=== PATIENT | male | born 1995 | race Hispanic/Latino ===

== ENCOUNTER 2017-11-28 03:32 | Observation (INO) | payer BC ==
[2017-11-28 03:48] VITALS: BMI 21.7
[2017-11-28] MEDS ORDERED: Piperacillin/Tazobact 3.375 GM in Sodium Chloride 0.9% 100 ML IVPB STA (03:49)
[2017-11-28] MEDS ORDERED: Sodium Chloride 0.9% 1,000 ML IV STA (03:50)
[2017-11-28] MEDS ORDERED: Piperacillin/Tazobact 3.375 gm Inj IVPB ONE (03:55)
--- NOTE | 2017-11-28 04:17 | ED PDOC ---
HPI: Abdomen Time Seen by Provider: 11/28/17 03:39 Chief Complaint (Nursing): Abdominal Pain Chief Complaint (Provider): Abdominal Pain, Nausea History Per: Patient History/Exam Limitations: no limitations Onset/Duration Of Symptoms: Sudden Onset (0230) Current Symptoms Are (Timing): Still Present Additional Complaint(s): 22 y/o male with no significant pmhx, who presents to the ED for evaluation of abdominal pain and nausea x1 hour. Patient states he work up around 02:30am with periumbilical pain and nausea. He reports he tried to have a bowel movement , but was unable to. He states the pain and nausea worsened, prompting him to present to the ED. On arrival to ED, patient states he feels better. Denies fever, chills, or any history of abdominal surgeries. PMD: None provided Past Medical History Reviewed: Historical Data, Nursing Documentation, Vital Signs Vital Signs: Last Vital Signs Temp 97.6 F 11/28/17 03:42 Pulse 115 H 11/28/17 03:42 Resp 18 11/28/17 03:42 BP 134/81 11/28/17 03:42 Pulse Ox 95 11/28/17 06:29 - Medical History PMH: No Chronic Diseases - Surgical History Surgical History: No Surg Hx - Family History Family History: States: Unknown Family Hx - Home Medications Home Medications: Ambulatory Orders Medication Instructions Recorded No Known Home Med 11/28/17 - Allergies Allergies/Adverse Reactions: Allergies Allergy/AdvReac Type Severity Reaction Status Date / Time No Known Allergies Allergy Verified 11/28/17 03:47 Review of Systems ROS Statement: Except As Marked, All Systems Reviewed And Found Negative Constitutional: Negative for: Fever, Chills Gastrointestinal: Positive for: Nausea, Abdominal Pain Physical Exam - Reviewed Nursing Documentation Reviewed: Yes Vital Signs Reviewed: Yes - Physical Exam Appears: Positive for: Well, Non-toxic, No Acute Distress Head Exam: Positive for: ATRAUMATIC, NORMAL INSPECTION, NORMOCEPHALIC Skin: Positive for: Normal Color, Warm, Dry. Negative for: Rash Eye Exam: Positive for: EOMI, Normal appearance, PERRL Neck: Positive for: Normal, Painless ROM, Supple Cardiovascular/Chest: Positive for: Regular Rate, Rhythm. Negative for: Murmur Respiratory: Positive for: Normal Breath Sounds. Negative for: Respiratory Distress Gastrointestinal/Abdominal: Positive for: Tenderness (RLQ). Negative for: Organomegaly, Mass, Guarding, Rebound Back: Positive for: Normal Inspection. Negative for: L CVA Tenderness, R CVA Tenderness, Vertebral Tenderness Extremity: Positive for: Normal ROM. Negative for: Pedal Edema, Deformity Neurologic/Psych: Positive for: Alert, Oriented - Laboratory Results Result Diagrams: 11/28/17 04:31 11/28/17 04:31 - ECG O2 Sat by Pulse Oximetry: 95 (RA) Pulse Ox Interpretation: Normal Medical Decision Making Medical Decision Makin:45AM A/P: 22 y/o male with no pmhx presenting with RLQ pain -Patient well appearing with normal vital signs except tachycardia -Differential diagnoses include, but are not limited to appendicitis vs mesenteric adenitis vs colitis vs gas -Will initiate workup for appendicitis 06:15AM CT ABDOMEN AND PELVIS WITH IV CONTRAST FINDINGS: LUNG BASES: No significant abnormality seen. ABDOMEN: LIVER: No acute abnormality of the liver identified. GALLBLADDER AND BILE DUCTS: No CT evidence of acute cholecystitis. No evidence of significant biliary ductal dilatation. PANCREAS: No CT evidence of acute pancreatitis. SPLEEN: No acute abnormality of the spleen identified. ADRENALS: No acute abnormality of the adrenal glands identified. KIDNEYS AND URETERS: No acute abnormality of the kidneys identified. No evidence of significant hydrouereteronephrosis. STOMACH AND BOWEL: Findings compatible with a distal small bowel obstruction. There are multiple dilated mostly distal small bowel loops seen in the pelvis, and the terminal ileum is decompressed. Transition point is seen, within the distal ileum, images 36-42 of series 601, where there is a change in caliber of the bowel, followed by a decompressed and mildly thick walled terminal ileum. Findings most likely represent a small bowel obstruction secondary to adhesions, less likely to mild enteritis involving the terminal ileum. Retained stool noted throughout the colon, with no evidence of a significant large bowel obstruction or fecal impaction. Otherwise , no significant abnormality of the bowel is identified. No evidence of diffuse small bowel dilatation. PELVIS: APPENDIX: Appendix is seen, and is within normal limits in appearance. BLADDER: No acute abnormality of the bladder identified. REPRODUCTIVE: No acute abnormality of the reproductive organs is seen. ABDOMEN and PELVIS: INTRAPERITONEAL SPACE: Small amount of free fluid in the pelvis and right abdomen. No evidence of free air. BONES/JOINTS: No acute fractures or other acute bony abnormality noted. SOFT TISSUES: No acute abnormality of the visualized soft tissues is seen. VASCULATURE: No evidence of abdominal aortic aneurysm. No evidence of periaortic hemorrhage. LYMPH NODES: No evidence of diffuse lymphadenopathy. IMPRESSION: - Findings highly suspicious for a distal small bowel obstruction. Please see above for a full description. - Small amount of free fluid. - See above for remaining findings. 630AM: Unclear as to why patient has SBO, possibly underlying Meckel's? Surgery consulted, Dr. Hermosillo aware. NGT if patient begins to vomit. Scribe Attestation: Documented by Torito Bales, acting as a scribe for Dax Pierre MD. Provider Scribe Attestation: All medical record entries made by the Scribe were at my direction and personally dictated by me. I have reviewed the chart and agree that the record accurately reflects my personal performance of the history, physical exam, medical decision making, and the department course for this patient. I have also personally directed, reviewed, and agree with the discharge instructions and disposition. Disposition - Clinical Impression Clinical Impression: Small bowel obstruction - Disposition Disposition Time: 06:31 Condition: STABLE Forms: [facility] ([place])
[2017-11-28 04:42] LABS: URINE BILIRUBIN NEGATIVE (NEGATIVE); URINE BLOOD NEGATIVE (NEGATIVE); URINE CLARITY CLEAR (Clear); URINE COLOR YELLOW (YELLOW); URINE GLUCOSE (UA) NEG (Normal); URINE LEUKOCYTE ESTERASE NEG Leu/uL (Negative); URINE PROTEIN NEGATIVE (NEGATIVE); URINE UROBILINOGEN 0.2-1.0 mg/dL (0.2-1.0)
[2017-11-28 04:43] LABS: BASO # 0.1 K/uL (0.0-0.2); BASO % 1.1 % (0.0-2.0); EOS # 0.2 K/uL (0.0-0.7); EOS % 5.2 % (0.0-4.0); HEMOGLOBIN 14.4 g/dL (12.0-18.0); LYMPH # 2.4 K/uL (1.0-4.3); LYMPH % 51.2 % (20.0-40.0); MEAN CORPUSCULAR HGB CONC 33.7 g/dL (33.0-37.0); MEAN PLATELET VOLUME 8.9 fl (7.2-11.7); MONO # 0.3 K/uL (0.0-0.8); MONO % 7.2 % (0.0-10.0); NEUT # 1.7 K/uL (1.8-7.0); NEUT % 35.3 % (50.0-75.0); NRBC % 0.3 % (0.0-0.0); RBC 4.79 Mil/uL (4.40-5.90); RED CELL DISTRIBUTION WIDTH 12.8 % (11.5-14.5); WHITE BLOOD COUNT 4.8 K/uL (4.8-10.8)
[2017-11-28 04:49] LABS: ALB/GLOB RATIO 1.6 (1.0-2.1); ALBUMIN 4.3 g/dL (3.5-5.0); ALT/SGPT 43 U/L (21-72); AST/SGOT 34 U/L (17-59); BILIRUBIN,DIRECT 0.2 mg/ml (0.0-0.4); BLOOD UREA NITROGEN 18 mg/dl (9-20); CALCIUM 9.1 mg/dL (8.4-10.2); GFR AFRICAN-AMERICAN > 60; GFR NON-AFRICAN AMERICAN > 60
[2017-11-28 04:53] LABS: PARTIAL THROMBOPLASTIN TIME 31.2 Seconds (25.6-37.1); PROTHROMBIN TIME 11.5 Seconds (9.8-13.1)
[2017-11-28] MEDS ORDERED: Sodium Chloride 0.9% 50 ML IV ONE (04:55)
[2017-11-28] MEDS ORDERED: Iohexol 300 100 ML IJ ONE (04:55)
[2017-11-28] MEDS ORDERED: Morphine 4 MG/ML VIAL ONE (05:18)
--- NOTE | 2017-11-28 06:17 | CT ---
EXAM: CT Abdomen and Pelvis With Intravenous Contrast EXAM DATE/TIME: 11/28/2017 3:48 AM CLINICAL HISTORY: 22 years old, male; Pain; Abdominal pain; Localized; Right lower quadrant (rlq); Additional info: Rlq pain, R/O appendicitis TECHNIQUE: Axial computed tomography images of the abdomen and pelvis with intravenous contrast. All CT scans at this facility use one or more dose reduction techniques, viz.: automated exposure control; ma/kV adjustment per patient size (including targeted exams where dose is matched to indication; i.e. head); or iterative reconstruction technique. Coronal and sagittal reformatted images were created and reviewed. CONTRAST: 90 mL of [id number] administered intravenously. COMPARISON: No relevant prior studies available. FINDINGS: LUNG BASES: No significant abnormality seen. ABDOMEN: LIVER: No acute abnormality of the liver identified. GALLBLADDER AND BILE DUCTS: No CT evidence of acute cholecystitis. No evidence of significant biliary ductal dilatation. PANCREAS: No CT evidence of acute pancreatitis. SPLEEN: No acute abnormality of the spleen identified. ADRENALS: No acute abnormality of the adrenal glands identified. KIDNEYS AND URETERS: No acute abnormality of the kidneys identified. No evidence of significant hydrouereteronephrosis. STOMACH AND BOWEL: Findings compatible with a distal small bowel obstruction. There are multiple dilated mostly distal small bowel loops seen in the pelvis, and the terminal ileum is decompressed. Transition point is seen, within the distal ileum, images 36-42 of series 601, where there is a change in caliber of the bowel, followed by a decompressed and mildly thick walled terminal ileum. Findings most likely represent a small bowel obstruction secondary to adhesions, less likely to mild enteritis involving the terminal ileum. Retained stool noted throughout the colon, with no evidence of a significant large bowel obstruction or fecal impaction. Otherwise, no significant abnormality of the bowel is identified. No evidence of diffuse small bowel dilatation.. PELVIS: APPENDIX: Appendix is seen, and is within normal limits in appearance. BLADDER: No acute abnormality of the bladder identified. REPRODUCTIVE: No acute abnormality of the reproductive organs is seen. ABDOMEN and PELVIS: INTRAPERITONEAL SPACE: Small amount of free fluid in the pelvis and right abdomen. No evidence of free air. BONES/JOINTS: No acute fractures or other acute bony abnormality noted. SOFT TISSUES: No acute abnormality of the visualized soft tissues is seen. VASCULATURE: No evidence of abdominal aortic aneurysm. No evidence of periaortic hemorrhage. LYMPH NODES: No evidence of diffuse lymphadenopathy. IMPRESSION: - Findings highly suspicious for a distal small bowel obstruction. Please see above for a full description. - Small amount of free fluid. - See above for remaining findings.
[2017-11-28] MEDS ORDERED: HYDROmorphone 0.5 mg/0.5 ml ISec IVP STA (06:35)
[2017-11-28] MEDS ORDERED: HYDROmorphone 0.5 mg/0.5 ml ISec ONE ×2 (06:36→08:57)
[2017-11-28] MEDS ORDERED: HYDROmorphone 0.5 mg/0.5 ml ISec IVP SCH (08:00)
[2017-11-28] MEDS ORDERED: Iohexol 240 (50 ml) PO ONE (09:51)
--- NOTE | 2017-11-28 09:56 | CP.PCM.CON ---
<Anders Feliciano - Last Filed: 11/28/17 09:53> History of Present Illness - History of Present Illness History of Present Illness: General Surgery Consult: Dr. Motley 22M with no significant past medical history presents to [facility] ED with complaints of abdominal pain. Patient reports pain started around 3AM. States pain was along epigastrium at first and later felt the abdominal pain along RLQ. Patient states he tried having a BM but was unable to do so. Reports nausea denies vomiting. States last BM was yesterday afternoon. Patient has not pass flatus since yesterday. At time of examination patient reported still having some RLQ pain. Denies hematochezia. Review of Vitals is normal. PMH: none PSH: none Allergies: NKDA Fam Hx: non-contributory Review of Systems - Review of Systems Review of Systems: 12 pt ROS unremarkable except as stated in HPI Past Patient History - Past Social History Smoking Status: Never Smoked - CARDIAC Hx Cardiac Disorders: No - PSYCHIATRIC Hx Substance Use: No Meds Allergies/Adverse Reactions: Allergies Allergy/AdvReac Type Severity Reaction Status Date / Time No Known Allergies Allergy Verified 11/28/17 03:47 - Medications Medications: Current Medications Hydromorphone HCl (Dilaudid) 0.5 mg IVP Q2 MERA Last Admin: 11/28/17 08:59 Dose: 0.5 mg Physical Exam - Constitutional Appears: Non-toxic, No Acute Distress - Head Exam Head Exam: NORMOCEPHALIC - Eye Exam Eye Exam: EOMI, Normal appearance - ENT Exam ENT Exam: Mucous Membranes Moist - Respiratory Exam Respiratory Exam: NORMAL BREATHING PATTERN - Cardiovascular Exam Cardiovascular Exam: +S1, +S2 - GI/Abdominal Exam GI & Abdominal Exam: Soft, Tenderness. absent: Distended, Firm, Guarding, Hernia Additional comments: RLQ tenderness to deep palpation - Neurological Exam Neurological exam: Alert - Psychiatric Exam Psychiatric exam: Normal Mood - Skin Skin Exam: Dry, Intact, Warm Results - Vital Signs Recent Vital Signs: Last Vital Signs Temp 97.8 F 11/28/17 09:09 Pulse 61 11/28/17 09:09 Resp 18 11/28/17 09:09 BP 118/70 11/28/17 09:09 Pulse Ox 100 11/28/17 09:09 - Labs Result Diagrams: 11/28/17 04:31 11/28/17 04:31 Labs: Laboratory Results - last 24 hr 11/28/17 11/28/17 11/28/17 04:31 04:31 04:31 WBC 4.8 RBC 4.79 Hgb 14.4 Hct 42.6 MCV 89.0 MCH 30.0 MCHC 33.7 RDW 12.8 Plt Count 184 MPV 8.9 Neut % (Auto) 35.3 L Lymph % (Auto) 51.2 H Laurel % (Auto) 7.2 Eos % (Auto) 5.2 H Baso % (Auto) 1.1 Neut # (Auto) 1.7 L Lymph # (Auto) 2.4 Laurel # (Auto) 0.3 Eos # (Auto) 0.2 Baso # (Auto) 0.1 PT INR APTT Sodium 140 Potassium 4.0 Chloride 103 Carbon Dioxide 28 Anion Gap 13 BUN 18 Creatinine 0.9 Est GFR ( Amer) > 60 Est GFR (Non-Af Amer) > 60 Random Glucose 90 Lactic Acid 1.0 Calcium 9.1 Total Bilirubin 0.2 Direct Bilirubin 0.2 AST 34 ALT 43 Alkaline Phosphatase 64 Total Protein 6.9 Albumin 4.3 Globulin 2.6 Albumin/Globulin Ratio 1.6 Urine Color Urine Clarity Urine pH Ur Specific Victoria Urine Protein Urine Glucose (UA) Urine Ketones Urine Blood Urine Nitrate Urine Bilirubin Urine Urobilinogen Ur Leukocyte Esterase Urine RBC (Auto) Urine Microscopic WBC Blood Type Blood Type Confirm Antibody Screen BBK History Checked 11/28/17 11/28/17 11/28/17 04:31 04:31 04:31 WBC RBC Hgb Hct MCV MCH MCHC RDW Plt Count MPV Neut % (Auto) Lymph % (Auto) Laurel % (Auto) Eos % (Auto) Baso % (Auto) Neut # (Auto) Lymph # (Auto) Laurel # (Auto) Eos # (Auto) Baso # (Auto) PT 11.5 INR 1.0 APTT 31.2 Sodium Potassium Chloride Carbon Dioxide Anion Gap BUN Creatinine Est GFR ( Amer) Est GFR (Non-Af Amer) Random Glucose Lactic Acid Calcium Total Bilirubin Direct Bilirubin AST ALT Alkaline Phosphatase Total Protein Albumin Globulin Albumin/Globulin Ratio Urine Color Yellow Urine Clarity Clear Urine pH 6.0 Ur Specific Victoria 1.020 Urine Protein Negative Urine Glucose (UA) Neg Urine Ketones Negative Urine Blood Negative Urine Nitrate Negative Urine Bilirubin Negative Urine Urobilinogen 0.2-1.0 Ur Leukocyte Esterase Neg Urine RBC (Auto) 3 Urine Microscopic WBC 1 Blood Type O NEGATIVE Blood Type Confirm Antibody Screen Negative BBK History Checked No verified bt 11/28/17 06:42 WBC RBC Hgb Hct MCV MCH MCHC RDW Plt Count MPV Neut % (Auto) Lymph % (Auto) Laurel % (Auto) Eos % (Auto) Baso % (Auto) Neut # (Auto) Lymph # (Auto) Laurel # (Auto) Eos # (Auto) Baso # (Auto) PT INR APTT Sodium Potassium Chloride Carbon Dioxide Anion Gap BUN Creatinine Est GFR ( Amer) Est GFR (Non-Af Amer) Random Glucose Lactic Acid Calcium Total Bilirubin Direct Bilirubin AST ALT Alkaline Phosphatase Total Protein Albumin Globulin Albumin/Globulin Ratio Urine Color Urine Clarity Urine pH Ur Specific Victoria Urine Protein Urine Glucose (UA) Urine Ketones Urine Blood Urine Nitrate Urine Bilirubin Urine Urobilinogen Ur Leukocyte Esterase Urine RBC (Auto) Urine Microscopic WBC Blood Type Blood Type Confirm O NEGATIVE Antibody Screen BBK History Checked Assessment & Plan - Assessment and Plan (Free Text) Assessment: 22M with abdominal pain and RLQ tenderness Plan: -NPO -IVF -No indication for ABx therapy at this present time -Will repeat CT scan with PO contrast will f/u -Serial Abd Exams -Further recs per Dr. Tiesha CALDERA PGY2 <Tang Motley - Last Filed: 11/28/17 10:46> History of Present Illness - History of Present Illness History of Present Illness: Patient was seen and examined at the bedside with resident's. Agree with resident's note above. Meds - Medications Medications: Current Medications Hydromorphone HCl (Dilaudid) 1 mg IVP Q4 PRN PRN Reason: Pain, moderate (4-7) Metronidazole (Flagyl 500mg/100ml Ns) 100 mls @ 100 mls/hr IVPB Q8 MERA PRN Reason: Protocol Pantoprazole Sodium (Protonix Inj) 40 mg IVP DAILY [facility] Physical Exam - GI/Abdominal Exam Additional comments: soft, tender in the lower abdomen, ND, BS+, no rebound, no guarding - Rectal Exam Rectal Exam: Deferred Results - Vital Signs Recent Vital Signs: Last Vital Signs Temp 97.8 F 11/28/17 09:09 Pulse 61 11/28/17 09:09 Resp 18 11/28/17 09:09 BP 118/70 11/28/17 09:09 Pulse Ox 100 11/28/17 09:09 - Labs Result Diagrams: 11/28/17 04:31 11/28/17 04:31 Labs: Laboratory Results - last 24 hr 11/28/17 11/28/17 11/28/17 04:31 04:31 04:31 WBC 4.8 RBC 4.79 Hgb 14.4 Hct 42.6 MCV 89.0 MCH 30.0 MCHC 33.7 RDW 12.8 Plt Count 184 MPV 8.9 Neut % (Auto) 35.3 L Lymph % (Auto) 51.2 H [place] % (Auto) 7.2 Eos % (Auto) 5.2 H Baso % (Auto) 1.1 Neut # (Auto) 1.7 L Lymph # (Auto) 2.4 Laurel # (Auto) 0.3 Eos # (Auto) 0.2 Baso # (Auto) 0.1 PT INR APTT Sodium 140 Potassium 4.0 Chloride 103 Carbon Dioxide 28 Anion Gap 13 BUN 18 Creatinine 0.9 Est GFR ( Amer) > 60 Est GFR (Non-Af Amer) > 60 Random Glucose 90 Lactic Acid 1.0 Calcium 9.1 Total Bilirubin 0.2 Direct Bilirubin 0.2 AST 34 ALT 43 Alkaline Phosphatase 64 Total Protein 6.9 Albumin 4.3 Globulin 2.6 Albumin/Globulin Ratio 1.6 Urine Color Urine Clarity Urine pH Ur Specific Victoria Urine Protein Urine Glucose (UA) Urine Ketones Urine Blood Urine Nitrate Urine Bilirubin Urine Urobilinogen Ur Leukocyte Esterase Urine RBC (Auto) Urine Microscopic WBC Blood Type Blood Type Confirm Antibody Screen BBK History Checked 11/28/17 11/28/17 11/28/17 04:31 04:31 04:31 WBC RBC Hgb Hct MCV MCH MCHC RDW Plt Count MPV Neut % (Auto) Lymph % (Auto) Laurel % (Auto) Eos % (Auto) Baso % (Auto) Neut # (Auto) Lymph # (Auto) [place] # (Auto) Eos # (Auto) Baso # (Auto) PT 11.5 INR 1.0 APTT 31.2 Sodium Potassium Chloride Carbon Dioxide Anion Gap BUN Creatinine Est GFR ( Amer) Est GFR (Non-Af Amer) Random Glucose Lactic Acid Calcium Total Bilirubin Direct Bilirubin AST ALT Alkaline Phosphatase Total Protein Albumin Globulin Albumin/Globulin Ratio Urine Color Yellow Urine Clarity Clear Urine pH 6.0 Ur Specific [place] 1.020 Urine Protein Negative Urine Glucose (UA) Neg Urine Ketones Negative Urine Blood Negative Urine Nitrate Negative Urine Bilirubin Negative Urine Urobilinogen 0.2-1.0 Ur Leukocyte Esterase Neg Urine RBC (Auto) 3 Urine Microscopic WBC 1 Blood Type O NEGATIVE Blood Type Confirm Antibody Screen Negative BBK History Checked No verified bt 11/28/17 06:42 WBC RBC Hgb Hct MCV MCH MCHC RDW Plt Count MPV Neut % (Auto) Lymph % (Auto) Laurel % (Auto) Eos % (Auto) Baso % (Auto) Neut # (Auto) Lymph # (Auto) Laurel # (Auto) Eos # (Auto) Baso # (Auto) PT INR APTT Sodium Potassium Chloride Carbon Dioxide Anion Gap BUN Creatinine Est GFR ( Amer) Est GFR (Non-Af Amer) Random Glucose Lactic Acid Calcium Total Bilirubin Direct Bilirubin AST ALT Alkaline Phosphatase Total Protein Albumin Globulin Albumin/Globulin Ratio Urine Color Urine Clarity Urine pH Ur Specific Victoria Urine Protein Urine Glucose (UA) Urine Ketones Urine Blood Urine Nitrate Urine Bilirubin Urine Urobilinogen Ur Leukocyte Esterase Urine RBC (Auto) Urine Microscopic WBC Blood Type Blood Type Confirm O NEGATIVE Antibody Screen BBK History Checked - Imaging and Cardiology CT scan - abdomen Status: Image reviewed by me, Report reviewed by me Assessment & Plan - Assessment and Plan (Free Text) Plan: - Repeat labs in am - Will follow
[2017-11-28] MEDS ORDERED: HYDROmorphone 1 mg/ml ISec IVP PRN (10:01)
--- NOTE | 2017-11-28 11:07 | HP ---
HISTORY OF PRESENT ILLNESS: Mr. Anton is a 22-year-old male who was admitted via the emergency room because of severe abdominal pain that started at about 3:00 in the morning. He had the pain in the epigastric area and also in the right lower quadrant area. He came to the emergency room where he had a scan of the abdomen that was compatible with small bowel obstruction. He was therefore admitted for workup and therapy. He denied diarrhea, nausea or vomiting. PAST MEDICAL HISTORY: Unremarkable. FAMILY HISTORY: Noncontributory. SOCIAL HISTORY: He does not drink or smoke. REVIEW OF SYSTEMS: Essentially unremarkable. PHYSICAL EXAMINATION: GENERAL: The patient is alert, oriented, appears to be in moderate distress because of abdominal pain. VITAL SIGNS: Blood pressure 118/70 with the pulse of 61, respiratory rate is 18. He is afebrile. O2 sat is 100% on room air. SKIN: Shows fair turgor. HEENT: Pupils are equal and reactive to light and accommodation. Mouth shows fair hygiene. LUNGS: Clear. HEART: Regular. No murmurs or gallops. ABDOMEN: Soft with right quadrant and suprapubic tenderness. No organomegaly appreciated. There is normoactive bowel sounds. EXTREMITIES: Show no edema or cyanosis. CENTRAL NERVOUS SYSTEM: Exam grossly intact. LABORATORY DATA: WBC 4.8, hemoglobin 14.4, and platelet count 184,000. Sodium 140, potassium 4, BUN 18, and creatinine 0.9. PT 11.5 and INR 1. Urinalysis essentially unremarkable. CT scan of abdomen and pelvis with IV contrast, findings are highly suspicious of distal small bowel obstruction and small amount of free fluid. IMPRESSION: Small bowel obstruction with acute abdominal pain. PLAN: The plan is surgical evaluation. The patient may need a CT scan of abdomen and pelvis with contrast. Further therapy will depend on findings and analgesics will be given for pain. Jose Hermosillo MD
[2017-11-28] MEDS: metroNIDAZOLE 500mg/100ml NS 100 ML IVPB SCH ×2 (11:08→16:58)
--- NOTE | 2017-11-28 12:00 | RAD ---
PROCEDURE: CHEST RADIOGRAPH, 1 VIEW HISTORY: ABDOMINAL PAIN COMPARISON: None available. FINDINGS: LUNGS: No acute pulmonary disease appreciated bilaterally. PLEURA: No pneumothorax or pleural fluid seen. CARDIOVASCULAR: Normal. OSSEOUS STRUCTURES: No significant abnormalities. VISUALIZED UPPER ABDOMEN: Normal. OTHER FINDINGS: None. IMPRESSION: No acute cardiopulmonary disease appreciated.
--- NOTE | 2017-11-28 16:36 | CT ---
PROCEDURE: CT Abdomen and Pelvis with contrast HISTORY: RLQ tenderness COMPARISON: None. TECHNIQUE: Helical CT of the abdomen and pelvis was performed following oral contrast administration. Intravenous contrast was not administered as per referring physician request. Contrast dose: None Radiation dose: Total exam DLP = 273.40 mGy-cm. This CT exam was performed using one or more of the following dose reduction techniques: Automated exposure control, adjustment of the mA and/or kV according to patient size, and/or use of iterative reconstruction technique. FINDINGS: Lack of intravenous contrast limits evaluation of solid abdominal and pelvic viscera in particular. LOWER THORAX: Lung bases remain clear. LIVER: Unremarkable. No gross lesion or ductal dilatation. GALLBLADDER AND BILE DUCTS: Vicarious excretion of iodinated contrast material is mildly identified within the lumen of the gallbladder. PANCREAS: Unremarkable. No gross lesion or ductal dilatation. SPLEEN: Unremarkable. ADRENALS: Unremarkable. No mass. KIDNEYS AND URETERS: Unremarkable. No hydronephrosis. No solid mass. VASCULATURE: Unremarkable. No aortic aneurysm. BOWEL: Stomach is mildly distended with retained oral contrast material and air. Proximal and mid small bowel loops appeared normal in caliber with distended distal large bowel loops with fecalized luminal contents with exception of the distal ileum which appears collapsed including the terminal ileum in the initial series performed at around 1 p.m. today. Delayed imaging performed at around 4 o'clock p.m. however reveals fecalization of the distal small bowel either completely or near completely resolved and the overall number of distal small-bowel loops dilated diminishing overall. Further, oral contrast is identified within the cecum and possibly the proximal ascending colon though minimal at this time. The pattern is therefore felt to represent a resolving ileus or partial/intermittent distal small bowel obstruction. APPENDIX: Appendix is likely normal once again. Clinically correlate further. No definite CT pattern appendicitis. Lack of intraperitoneal fat limits evaluation of the abdominal viscera. PERITONEUM: Unremarkable. No free fluid. No free air. LYMPH NODES: No prominent lymphadenopathy identified. BLADDER: Distended with excreted iodinated contrast material from prior CT 11/28/2017. REPRODUCTIVE: Unremarkable. BONES: No acute fracture. OTHER FINDINGS: None. IMPRESSION: 1. Diminishing distention of distal small bowel loops is appreciated as well as fecalization with prominent fecal material again seen throughout the colon in a pattern that suggests resolving ileus or partial/intermittent distal small bowel obstruction and possible constipation throughout the colon. Further clinical correlation is advised. No extravasation of oral contrast and contrast material or free intraperitoneal gas. No definitive ascites. 2. Appendicitis is not favored with the appendix partially captured medial to the cecum partially filled with gas. The appendix is likely normal.
[2017-11-28 23:32] VITALS: RESP 18
[2017-11-29] MEDS: metroNIDAZOLE 500mg/100ml NS 100 ML IVPB SCH ×2 (00:40→10:14)
[2017-11-29] MEDS: Sodium Chloride 0.9% 1,000 ML IV SCH ×2 (03:30→04:26)
[2017-11-29 06:41] LABS: ALB/GLOB RATIO 1.6 (1.0-2.1); ALBUMIN 3.5 g/dL (3.5-5.0); ALT/SGPT 36 U/L (21-72); AST/SGOT 25 U/L (17-59); BLOOD UREA NITROGEN 13 mg/dl (9-20); GFR AFRICAN-AMERICAN > 60; GFR NON-AFRICAN AMERICAN > 60
[2017-11-29 06:48] LABS: BASO % 0.8 % (0.0-2.0); EOS # 0.2 K/uL (0.0-0.7); EOS % 4.1 % (0.0-4.0); HEMOGLOBIN 13.6 g/dL (12.0-18.0); LYMPH # 1.4 K/uL (1.0-4.3); LYMPH % 36.4 % (20.0-40.0); MEAN CELL VOLUME 88.5 fl (80.0-94.0); MEAN CORPUSCULAR HEMOGLOBIN 30.6 pg (27.0-31.0); MEAN CORPUSCULAR HGB CONC 34.6 g/dL (33.0-37.0); MEAN PLATELET VOLUME 9.2 fl (7.2-11.7); MONO # 0.3 K/uL (0.0-0.8); MONO % 8.4 % (0.0-10.0); NEUT # 1.9 K/uL (1.8-7.0); NEUT % 50.3 % (50.0-75.0); NRBC % 0.4 % (0.0-0.0); RBC 4.44 Mil/uL (4.40-5.90); RED CELL DISTRIBUTION WIDTH 12.8 % (11.5-14.5); WHITE BLOOD COUNT 3.8 K/uL (4.8-10.8)
--- NOTE | 2017-11-29 08:00 | CP.PCM.PN ---
Subjective - Date & Time of Evaluation Date of Evaluation: 11/29/17 Time of Evaluation: 07:58 - Subjective Subjective: General Surgery Progress Note for Dr. Motley 22M seen at bedside this AM. States that pain is greatly improved. Denies any acute overnight events or new complaints. States that he has been able to pass some gas but still has not had a BM since admittance to the hospital. Appetite is good. Denies any recent N/V/F/C/CP/SOB/D Objective - Vital Signs/Intake and Output Vital Signs (last 24 hours): Temp Pulse Resp BP Pulse Ox 98.2 F 57 L 18 100/55 L 97 11/28/17 23:32 11/28/17 23:32 11/28/17 23:32 11/28/17 23:32 11/28/17 23:32 - Medications Medications: Current Medications Hydromorphone HCl (Dilaudid) 1 mg IVP Q4 PRN PRN Reason: Pain, moderate (4-7) Last Admin: 11/28/17 11:07 Dose: 1 mg Metronidazole (Flagyl 500mg/100ml Ns) 100 mls @ 100 mls/hr IVPB Q8 [facility] PRN Reason: Protocol Last Admin: 11/29/17 00:40 Dose: 100 mls/hr Sodium Chloride (Sodium Chloride 0.9%) 1,000 mls @ 100 mls/hr IV .Q10H [facility] Stop: 11/30/17 03:26 Last Admin: 11/29/17 04:26 Dose: 100 mls/hr Pantoprazole Sodium (Protonix Inj) 40 mg IVP DAILY [facility] Last Admin: 11/28/17 11:00 Dose: 40 mg - Labs Labs: 11/29/17 05:40 11/29/17 05:40 PT 11.5 Seconds (9.8-13.1) 11/28/17 04:31 INR 1.0 (0.9-1.2) 11/28/17 04:31 APTT 31.2 Seconds (25.6-37.1) 11/28/17 04:31 - Constitutional Appears: Well, Non-toxic, No Acute Distress - Head Exam Head Exam: ATRAUMATIC, NORMOCEPHALIC - GI/Abdominal Exam GI & Abdominal Exam: Soft, Tenderness. absent: Firm, Guarding, Rigid, Rebound Additional comments: Tenderness to RLQ - Neurological Exam Neurological Exam: Alert, Awake, Oriented x3 - Psychiatric Exam Psychiatric exam: Normal Affect, Normal Mood Assessment and Plan - Assessment and Plan (Free Text) Assessment: 22M with abdominal pain and RLQ tenderness Plan: Afebrile, absent leukocytosis Pain meds Abx CT abd: Probable resolving ileus or partial/intermittent distal small bowel obstruction and possible constipation throughout colon. Appendicitis is unlikely F/u abd xray read Suppository ordered ADAT Patient is clear for DC from surgical standpoint as long as he is tolerating a regular diet
[2017-11-29 08:30] VITALS: BP 101/56; PULSE 61; TEMP 97.6; O2SAT 100
--- NOTE | 2017-11-29 08:48 | RAD ---
HISTORY: evaluation of contrast movement COMPARISON: Correlations made to CT scan of the abdomen and pelvis performed at 11/28/2017 FINDINGS: BOWEL: Retained enteric contrast is seen in the colon, up to the distal descending colon. BONES: Normal. OTHER FINDINGS: None. IMPRESSION: Retained enteric contrast has progressed to the distal descending colon.
--- NOTE | 2017-11-29 09:35 | CP.PCM.PN ---
Subjective - Date & Time of Evaluation Date of Evaluation: 11/29/17 Time of Evaluation: 09:36 - Subjective Subjective: FEELS BETTER ABDOMINAL PAIN RESOLVED TOLERATING LIQUID DIET PASSED STOOL FINALLY Objective - Vital Signs/Intake and Output Vital Signs (last 24 hours): Temp Pulse Resp BP Pulse Ox 97.6 F 61 18 101/56 L 100 11/29/17 08:28 11/29/17 08:28 11/29/17 08:28 11/29/17 08:28 11/29/17 08:28 - Medications Medications: Current Medications Hydromorphone HCl (Dilaudid) 1 mg IVP Q4 PRN PRN Reason: Pain, moderate (4-7) Last Admin: 11/28/17 11:07 Dose: 1 mg Metronidazole (Flagyl 500mg/100ml Ns) 100 mls @ 100 mls/hr IVPB Q8 [facility] PRN Reason: Protocol Last Admin: 11/29/17 00:40 Dose: 100 mls/hr Sodium Chloride (Sodium Chloride 0.9%) 1,000 mls @ 100 mls/hr IV .Q10H [facility] Stop: 11/30/17 03:26 Last Admin: 11/29/17 04:26 Dose: 100 mls/hr Pantoprazole Sodium (Protonix Inj) 40 mg IVP DAILY [facility] Last Admin: 11/28/17 11:00 Dose: 40 mg - Labs Labs: 11/29/17 05:40 11/29/17 05:40 PT 11.5 Seconds (9.8-13.1) 11/28/17 04:31 INR 1.0 (0.9-1.2) 11/28/17 04:31 APTT 31.2 Seconds (25.6-37.1) 11/28/17 04:31 - Constitutional Appears: Well - Head Exam Head Exam: ATRAUMATIC, NORMAL INSPECTION, NORMOCEPHALIC - Eye Exam Eye Exam: EOMI, Normal appearance, PERRL Pupil Exam: NORMAL ACCOMODATION, PERRL - ENT Exam ENT Exam: Mucous Membranes Moist, Normal Exam - Neck Exam Neck Exam: Full ROM, Normal Inspection. absent: Lymphadenopathy - Respiratory Exam Respiratory Exam: Clear to Ausculation Bilateral, NORMAL BREATHING PATTERN - Cardiovascular Exam Cardiovascular Exam: REGULAR RHYTHM, +S1, +S2. absent: Murmur - GI/Abdominal Exam GI & Abdominal Exam: Soft, Normal Bowel Sounds. absent: Tenderness - Rectal Exam Rectal Exam: NORMAL INSPECTION - Extremities Exam Extremities Exam: Full ROM, Normal Capillary Refill, Normal Inspection. absent : Joint Swelling, Pedal Edema - Back Exam Back Exam: NORMAL INSPECTION - Neurological Exam Neurological Exam: Alert, Awake, CN II-XII Intact, Normal Gait, Oriented x3 - Psychiatric Exam Psychiatric exam: Normal Affect, Normal Mood - Skin Skin Exam: Dry, Intact, Normal Color, Warm Assessment and Plan - Assessment and Plan (Free Text) Assessment: RESOLVED SMALL BOWEL OBSTRUCTION Plan: ADVANCE DIET DISCHARGE HOME AND FOLLOW UP WITH PMD IF PT TOLERATES DIET THIS AFTERNOON CASE DISCUSSED WITH SURGICAL TEAM--PT CLEARED FOR DISCHARGE BY THEM
--- NOTE | 2017-11-29 09:39 | CP.PCM.DIS ---
Provider - Provider Date of Admission: 11/28/17 06:26 Attending physician: Jose Hermosillo MD Time Spent in preparation of Discharge (in minutes): 30 Diagnosis - Discharge Diagnosis (1) Small bowel obstruction Status: Acute Hospital Course - Lab Results Lab Results: Micro Results 11/28/17 06:29 Blood Blood Culture - Preliminary NO GROWTH AFTER 24 HOURS 11/28/17 04:31 Blood Blood Culture - Preliminary NO GROWTH AFTER 24 HOURS Most Recent Lab Values WBC 3.8 K/uL (4.8-10.8) L 11/29/17 05:40 RBC 4.44 Mil/uL (4.40-5.90) 11/29/17 05:40 Hgb 13.6 g/dL (12.0-18.0) 11/29/17 05:40 Hct 39.3 % (35.0-51.0) 11/29/17 05:40 MCV 88.5 fl (80.0-94.0) 11/29/17 05:40 MCH 30.6 pg (27.0-31.0) 11/29/17 05:40 MCHC 34.6 g/dL (33.0-37.0) 11/29/17 05:40 RDW 12.8 % (11.5-14.5) 11/29/17 05:40 Plt Count 160 K/uL (130-400) 11/29/17 05:40 MPV 9.2 fl (7.2-11.7) 11/29/17 05:40 Neut % (Auto) 50.3 % (50.0-75.0) 11/29/17 05:40 Lymph % (Auto) 36.4 % (20.0-40.0) 11/29/17 05:40 [place] % (Auto) 8.4 % (0.0-10.0) 11/29/17 05:40 Eos % (Auto) 4.1 % (0.0-4.0) H 11/29/17 05:40 Baso % (Auto) 0.8 % (0.0-2.0) 11/29/17 05:40 Neut # (Auto) 1.9 K/uL (1.8-7.0) 11/29/17 05:40 Lymph # (Auto) 1.4 K/uL (1.0-4.3) 11/29/17 05:40 [place] # (Auto) 0.3 K/uL (0.0-0.8) 11/29/17 05:40 Eos # (Auto) 0.2 K/uL (0.0-0.7) 11/29/17 05:40 Baso # (Auto) 0.0 K/uL (0.0-0.2) 11/29/17 05:40 PT 11.5 Seconds (9.8-13.1) 11/28/17 04:31 INR 1.0 (0.9-1.2) 11/28/17 04:31 APTT 31.2 Seconds (25.6-37.1) 11/28/17 04:31 Sodium 141 mmol/l (132-148) 11/29/17 05:40 Potassium 4.0 MMOL/L (3.6-5.0) 11/29/17 05:40 Chloride 105 mmol/L (98-107) 11/29/17 05:40 Carbon Dioxide 27 mmol/L (22-30) 11/29/17 05:40 Anion Gap 13 (10-20) 11/29/17 05:40 BUN 13 mg/dl (9-20) 11/29/17 05:40 Creatinine 0.9 mg/dl (0.8-1.5) 11/29/17 05:40 Est GFR ( Amer) > 60 11/29/17 05:40 Est GFR (Non-Af Amer) > 60 11/29/17 05:40 Random Glucose 93 mg/dL (75-110) 11/29/17 05:40 Lactic Acid 1.0 MMOL/L (0.7-2.1) 11/28/17 04:31 Calcium 9.0 mg/dL (8.4-10.2) 11/29/17 05:40 Total Bilirubin 0.8 mg/dl (0.2-1.3) 11/29/17 05:40 Direct Bilirubin 0.2 mg/ml (0.0-0.4) 11/28/17 04:31 AST 25 U/L (17-59) 11/29/17 05:40 ALT 36 U/L (21-72) 11/29/17 05:40 Alkaline Phosphatase 40 U/L (38-126) 11/29/17 05:40 Total Protein 5.8 G/DL (6.3-8.2) L 11/29/17 05:40 Albumin 3.5 g/dL (3.5-5.0) 11/29/17 05:40 Globulin 2.2 gm/dL (2.2-3.9) 11/29/17 05:40 Albumin/Globulin Ratio 1.6 (1.0-2.1) 11/29/17 05:40 Urine Color Yellow (YELLOW) 11/28/17 04:31 Urine Clarity Clear (Clear) 11/28/17 04:31 Urine pH 6.0 (5.0-8.0) 11/28/17 04:31 Ur Specific [place] 1.020 (1.003-1.030) 11/28/17 04:31 Urine Protein Negative mg/dL (NEGATIVE) 11/28/17 04:31 Urine Glucose (UA) Neg mg/dL (Normal) 11/28/17 04:31 Urine Ketones Negative mg/dL (NEGATIVE) 11/28/17 04:31 Urine Blood Negative (NEGATIVE) 11/28/17 04:31 Urine Nitrate Negative (NEGATIVE) 11/28/17 04:31 Urine Bilirubin Negative (NEGATIVE) 11/28/17 04:31 Urine Urobilinogen 0.2-1.0 mg/dL (0.2-1.0) 11/28/17 04:31 Ur Leukocyte Esterase Neg [place]/uL (Negative) 11/28/17 04:31 Urine RBC (Auto) 3 /hpf (0-3) 11/28/17 04:31 Urine Microscopic WBC 1 /hpf (0-5) 11/28/17 04:31 Blood Type O NEGATIVE 11/28/17 04:31 Blood Type Confirm O NEGATIVE 11/28/17 06:42 Antibody Screen Negative 11/28/17 04:31 BBK History Checked No verified bt 11/28/17 04:31 - Hospital Course Hospital Course: ABDOMINAL PAIN RESOLVED PT MOVED HIS BOWELS CT SCAN OF ABD/PELVIS--IMPROVED INT OBSTRUCTION Discharge Exam - Head Exam Head Exam: ATRAUMATIC, NORMAL INSPECTION, NORMOCEPHALIC - Eye Exam Eye Exam: EOMI, Normal appearance, PERRL Pupil Exam: NORMAL ACCOMODATION, PERRL - GI/Abdominal Exam GI & Abdominal Exam: Normal Bowel Sounds - Rectal Exam Rectal Exam: NORMAL INSPECTION - Neurological Exam Neurological exam: Alert, CN II-XII Intact, Normal Gait, Oriented x3, Reflexes Normal - Psychiatric Exam Psychiatric exam: Normal Affect, Normal Mood - Skin Skin Exam: Dry, Intact, Normal Color, Warm Discharge Plan - Follow Up Plan Condition: STABLE Disposition: HOME/ ROUTINE Patient education suggested?: Yes Additional Instructions: ADVANCE DIET DISCHARGE TODAY AND FOLLOW UP WITH PMD
[2017-11-29] MEDS ORDERED: Chlorhexidine Gluconate 1 APPL/PKT TP ONE (10:02)
== END 2017-11-29 14:11 | disposition home or self-care (01) ==
LOC: H.ER 03:32 → H.ERHOLD 06:26 → INTOOBSV 06:26 → H.MEDSURG1 09:07
PROVIDERS: ADMIT Internal Medicine Pulmonary Disease; ATTEND Internal Medicine Pulmonary Disease
DX: K56.609 Unspecified intestinal obstruction, unspecified as to partial versus complete obstruction (principal)
CPT/HCPCS: 36415; 71045; 74018; 74176; 74177; 80048; 80053; 80076; 81003; 83605; 85025; 85610; 85730; 86850; 86900; 87040; 96361; 96365; 96366; 96375; 96376; 99284; C9113; G0378; J1170; J1885; J2270; J2543; J7040; Q9966; Q9967